=== PATIENT | male | born 1960 | race American Indian/Alaskan Native ===

== ENCOUNTER 2017-02-17 19:52 | Emergency (ER) | payer MEDICARE ==
[2017-02-17 20:30] VITALS: BP 148/90
[2017-02-17 20:47] LABS: Basophils % (Auto) 0.2 % (0.0-1.8); Eosinophils % (Auto) 1.9 % (0.0-4.3); Hematocrit 46.8 % (35.5-45.6); Hemoglobin 15.4 gm/dl (11.8-15.2); Mean Corpuscular HGB Conc 33 % (32-34); Mean Corpuscular Hemoglobin 29 pg (28-32); Mean Corpuscular Volume 88 fl (84-94); Platelet Count 133 K/mm3 (140-440); Red Blood Count 5.33 M/mm3 (3.65-5.03); Red Cell Distribution Width 15.5 % (13.2-15.2); White Blood Count 6.9 K/mm3 (4.5-11.0)
[2017-02-17 21:04] LABS: BUN/Creatinine Ratio 12.85; Calcium 9.2 mg/dL (8.4-10.2); Chloride 98.1 mmol/L (98-107); Potassium 4.1 mmol/L (3.6-5.0)
--- NOTE | 2017-02-19 00:16 | ED Elopement Review ---
ED Pt Elopement review - Results review Lab results: Laboratory Tests 02/17/17 02/17/17 02/17/17 20:35 20:35 20:35 WBC 6.9 RBC 5.33 H Hgb 15.4 H Hct 46.8 H MCV 88 MCH 29 MCHC 33 RDW 15.5 H Plt Count 133 L Lymph % (Auto) 18.8 [place] % (Auto) 14.4 H Eos % (Auto) 1.9 Baso % (Auto) 0.2 Lymph # 1.3 [place] # 1.0 H Eos # 0.1 Baso # 0.0 Seg Neutrophils % 64.7 Seg Neutrophils # 4.5 Sodium 139 Potassium 4.1 Chloride 98.1 Carbon Dioxide 28 Anion Gap 17 BUN 18 Creatinine 1.4 Estimated GFR 52 BUN/Creatinine Ratio 12.85 Glucose 174 H Calcium 9.2 Plasma/Serum Alcohol < 0.01 - Call Back decision Pt Call Back Decision: No action required
== END 2017-02-17 23:45 | disposition left against medical advice (07) ==
LOC: EEVIPCON 19:52 → ED 19:52
DX: Z00.00 Encounter for general adult medical examination without abnormal findings (principal); Z53.21 Procedure and treatment not carried out due to patient leaving prior to being seen by health care provider
CPT/HCPCS: 36415; 80048; 85025; G0480; 80320